=== PATIENT | female | born 1965 | race Caucasian/White ===

== ENCOUNTER 2018-09-10 18:31 | Emergency (ER) | payer OTHER, BC, SELFPAY ==
[2018-09-10 19:37] VITALS: BP 127/72; PULSE 60; RESP 20; TEMP 37; O2SAT 98
--- NOTE | 2018-09-10 19:43 | DI.RAD.S_ITS ---
PROCEDURE: XR RIBS LT MIN 3V W CXR1V INDICATIONS: trauma TECHNIQUE: 2 views of the left ribs were acquired, along with a single view chest. COMPARISON: None. FINDINGS: Surgical changes and devices: None. Bones and chest wall: No fractures or dislocations. No suspicious bony lesions. Overlying soft tissues appear unremarkable. Lungs and pleura: No pleural effusions or pneumothorax. Lungs appear clear. Mediastinum: Mediastinal contours appear normal. Heart size is normal. IMPRESSION: A no trauma found, no pneumothorax identified. Please note that nondisplaced rib fractures may not be accurately detected initially and can be detected by obtaining delayed plain films due to callus formation along the nondisplaced fracture plane. Depending on the clinical status followup by delayed plain films may be warranted. Dictated by: Kelvin Pollock M.D. on 09/10/2018 at 20:49 Approved by: Kelvin Pollock M.D. on 09/10/2018 at 20:50
--- NOTE | 2018-09-10 21:18 | ED_ITS ---
HPI - Trauma <ISADORA Butt - Last Filed: 09/10/18 22:22> General Chief Complaint: Extremity Injury, Upper Stated Complaint: THINKS SHE BROKE A FEW RIBS Time Seen by Provider: 09/10/18 21:17 Source: patient Mode of arrival: ambulatory Limitations: no limitations History of Present Illness HPI narrative: 53-year-old healthy female that is a nonsmoker here for complaint of pain to her left ribcage. She states that last night she had a ground level fall where she fell and landed on the left ribcage area. She reports increased pain with movement of the left ribcage area or palpation of the area. She also reports pain with deep inspiration. She denies any shortness of breath. She is ambulatory into the emergency room. She denies any head injury. No neck pain. She denies any extremity pain. No other concerns or complaints at this timeframe. complaint: injury Related Data Previous Rx's Medication Instructions Recorded hydrocodone-acetaminophen [[place]] 1 tab PO Q6H PRN #5 tab 09/10/18 Allergies Allergy/AdvReac Type Severity Reaction Status Date / Time Iodinated Contrast- Oral and Allergy Verified 09/10/18 19:36 IV Dye Sulfa (Sulfonamide Allergy Verified 09/10/18 19:36 Antibiotics) Penicillins AdvReac Rash Verified 09/10/18 19:36 Review of Systems <ISADORA Butt - Last Filed: 09/10/18 22:22> Constitutional Denies chills, Denies fever(s), Denies lethargy and Denies weakness Eyes Denies change in vision, Denies eye discharge, Denies irritation and Denies loss of vision ENT Ears, Nose, Mouth, and Throat: Denies change in voice, Denies neck pain and Denies sore throat Cardiovascular Denies chest pain, Denies irregular heart rhythm, Denies lightheadedness, Denies palpitations, Denies dyspnea, Denies dyspnea on exertion and Denies orthopnea Respiratory Denies cough, Denies dyspnea, Denies dyspnea on exertion and Denies wheezing Comments: Left ribcage pain Gastrointestinal Gastrointestinal: Denies abdominal pain, Denies change in bowel habits, Denies diarrhea, Denies nausea and Denies vomiting Genitourinary Denies hematuria, Denies flank pain, Denies urinary incontinence and Denies urinary urgency Musculoskeletal Denies neck pain Integumentary/Breasts Denies pruritus, Denies erythema, Denies rash and Denies wounds Neurologic Denies confusion, Denies loss of vision and Denies weakness Psychiatric Denies anxiety, Denies confusion, Denies depression, Denies homicidal ideation and Denies suicidal ideation Endocrine Denies palpitations Hematologic/Lymphatic Denies easy bruising Allergic/Immunologic Denies wheezing Exam <ISADORA Butt - Last Filed: 09/10/18 22:22> Initial Vital Signs Initial Vital Signs: Vital Signs Temperature 98.6 F 09/10/18 19:37 Pulse Rate 60 09/10/18 19:37 Respiratory Rate 20 09/10/18 19:37 Blood Pressure 127/72 09/10/18 19:37 Pulse Oximetry 98 09/10/18 19:37 Const General: cooperative and well developed Nutritional Appearance: well nourished Orientation: alert, awake, oriented x3 and not confused HENMT Mouth: oral mucosae normal and moist mucous membranes Eyes Conjunctivae: conjunctivae normal Sclera: sclerae normal Pupils: PERRL EOM: EOM intact bilaterally Chest Chest: normal inspection of the chest Other: Slight ecchymosis to the left ribcage area. No swelling. No deformities. Resp Effort & Inspection: normal respiratory effort, able to speak in complete sentences, no respiratory distress and no use of accessory muscles Auscultation: clear to auscultation bilaterally, no rales, no rhonchi and no wheezes Cardio Rate: regular rate Rhythm: regular rhythm Heart Sounds: no click, no gallops, no murmurs and no rubs Pulses: normal peripheral pulses Skin General: no rashes or lesions noted, No jaundice and No petechiae Neuro General: alert, oriented x3, gait normal and no focal motor deficits Speech: speech normal <Trina Rivera MD - Last Filed: 09/11/18 02:50> Initial Vital Signs Initial Vital Signs: Vital Signs Temperature 98.6 F 09/10/18 19:37 Pulse Rate 60 09/10/18 19:37 Respiratory Rate 20 09/10/18 19:37 Blood Pressure 127/72 09/10/18 19:37 Pulse Oximetry 98 09/10/18 19:37 Course <ISADORA Butt - Last Filed: 09/10/18 22:22> Orders Ordered: ED Orders 09/10/18 19:43 XR ribs LT min 3V w CXR1V Stat Discontinued Medications Hydrocodone Bitart/Acetaminophen (Vicodin Prepack) 1 bottle MISC SEEINSTR ONE Stop: 09/10/18 22:19 Last Admin: 09/10/18 23:07 Dose: 1 bottle Hydrocodone Bitart/Acetaminophen ([place] 5/325) 1 tab PO NOW ONE Stop: 09/10/18 22:19 Last Admin: 09/10/18 22:40 Dose: 1 tab Vital Signs - 8 hr 09/10/18 19:37 09/10/18 22:00 09/10/18 23:14 Temperature 98.6 F 97.4 F L 97.4 F L Pulse Rate 60 77 74 Respiratory Rate 20 14 18 Blood Pressure 127/72 131/64 Blood Pressure [Right Arm] 131/64 Pulse Oximetry 98 99 99 <Trina Rivera MD - Last Filed: 09/11/18 02:50> Orders Ordered: ED Orders 09/10/18 19:43 XR ribs LT min 3V w CXR1V Stat Discontinued Medications Hydrocodone Bitart/Acetaminophen (Vicodin Prepack) 1 bottle MISC SEEINSTR ONE Stop: 09/10/18 22:19 Last Admin: 09/10/18 23:07 Dose: 1 bottle Hydrocodone Bitart/Acetaminophen ([place] 5/325) 1 tab PO NOW ONE Stop: 09/10/18 22:19 Last Admin: 09/10/18 22:40 Dose: 1 tab Vital Signs - 8 hr 09/10/18 19:37 09/10/18 22:00 09/10/18 23:14 Temperature 98.6 F 97.4 F L 97.4 F L Pulse Rate 60 77 74 Respiratory Rate 20 14 18 Blood Pressure 127/72 131/64 Blood Pressure [Right Arm] 131/64 Pulse Oximetry 98 99 99 MDM - Trauma <ISADORA Butt - Last Filed: 09/10/18 22:22> Imaging Data Left ribcage : Radiologist's impression: [address] [address] XRay Report Signed Patient: DAR WATSON MR#: [id number] : 1965 Acct:[id number] Age/Sex: 53 / F Date of Service: 09/10/18 Loc: ED Accession Number: [id number] Procedure: XR ribs LT min 3V w CXR1V Ordering Provider: Trina Rivera MD PROCEDURE: XR RIBS LT MIN 3V W CXR1V INDICATIONS: trauma TECHNIQUE: 2 views of the left ribs were acquired, along with a single view chest. COMPARISON: None. FINDINGS: Surgical changes and devices: None. Bones and chest wall: No fractures or dislocations. No suspicious bony lesions. Overlying soft tissues appear unremarkable. Lungs and pleura: No pleural effusions or pneumothorax. Lungs appear clear. Mediastinum: Mediastinal contours appear normal. Heart size is normal. IMPRESSION: A no trauma found, no pneumothorax identified. Please note that nondisplaced rib fractures may not be accurately detected initially and can be detected by obtaining delayed plain films due to callus formation along the nondisplaced fracture plane. Depending on the clinical status followup by delayed plain films may be warranted. Dictated by: Kelvin Pollock M.D. on 09/10/2018 at 20:49 Approved by: Kelvin Pollock M.D. on 09/10/2018 at 20:50 [facility] Narrative Medical decision making narrative: X-ray of the chest and left ribcage area was obtained was negative for any acute fractures or findings. Signs symptoms presents as contusion to the left ribcage area. [id number] Tylenol or Motrin as needed for any discomfort. Follow up with her primary care provider next week for re-evaluation. Small amount of [place] is prescribed for breakthrough pain. For any worsening symptoms return to the emergency room. No driving while on the [place]. Discharge Plan Departure Patient Disposition: Home Clinical Impression: Contusion of rib on left side Discharge Date/Time: 09/10/18 23:14 Interventions: ED Discharge Assessment Last Done: 09/10/18 23:14 Instructions: DI for Rib Contusion Activity Restrictions/Additional Instructions: X-ray of the chest and left ribcage area was obtained was negative for any acute fractures or findings. Signs symptoms presents as contusion to the left ribcage area. [id number] Tylenol or Motrin as needed for any discomfort. Follow up with her primary care provider next week for re-evaluation. Small amount of [place] is prescribed for breakthrough pain. For any worsening symptoms return to the emergency room. No driving while on the [place]. Prescriptions: New hydrocodone-acetaminophen [[place]] 5-325 mg tablet 1 tab PO Q6H PRN (Reason: pain) Qty: 5 RF: 0 Referrals: [facility] [Provider Group]
[2018-09-10 22:00] VITALS: BP 131/64; PULSE 77; RESP 14; TEMP 36.3; O2SAT 99
[2018-09-10] MEDS: HYDROCODONE/ACET 5/325 TABLET 1 TAB PO (22:40)
[2018-09-10] MEDS: HYDROCODONE/ACET 5/325 PREPACK 1 BOTTLE MISC (23:07)
[2018-09-10 23:14] VITALS: BP 131/64; PULSE 74; RESP 18; TEMP 36.3; O2SAT 99
== END 2018-09-10 23:14 | disposition home or self-care (01) ==
PROVIDERS: Emergency Provider Nurse Practitioner Family
DX: S20.212A Contusion of left front wall of thorax, initial encounter (principal); W19.XXXA Unspecified fall, initial encounter
CPT/HCPCS: 71101; 99282; 99283

== ENCOUNTER → 2023-06-12 16:14 | Outpatient (CLI) | payer OTHER, SELFPAY ==
[2023-06-12 16:53] LABS: Hematocrit 34.3 % (36-46); Hemoglobin 11.8 g/dL (12.0-16.0); Mean Corpuscular HGB Conc 34.4 % (30-36); Mean Corpuscular Hemoglobin 32.5 PG (26-34); Mean Corpuscular Volume 94.6 fL (80-100); Platelet Count 180 X10^3/uL (150-400); Red Blood Cell Count 3.63 X10^6/uL (4.0-5.2); Red Cell Distribution Width 12.6 % (11.6-14.8); White Blood Cell Count 6.3 X10^3/uL (4.5-11.0)
== END ==
PROVIDERS: Referring Provider Physician Assistant; Visit Provider Physician Assistant
DX: N95.0 Postmenopausal bleeding (principal)
CPT/HCPCS: 36415; 85027

== ENCOUNTER → 2023-06-19 12:09 | Outpatient (CLI) | payer OTHER, SELFPAY ==
--- NOTE | 2023-06-19 12:11 | DI.US.S_ITS ---
PROCEDURE: US PELVIC COMPLETE INDICATIONS: POST MENOPAUSAL BLEEDING TECHNIQUE: Real-time scanning was performed of the pelvic organs, with image documentation. Additional endovaginal scanning was necessary due to incomplete visualization of the adnexal and endometrial structures by transabdominal scanning. COMPARISON: [facility], US, US PELVIC COMPLETE, 11/11/2021, 9:34. FINDINGS: Uterus: Uterus is anteverted and normal in size at 8.7 x 4.2 x 5.4 cm. The myometrium is heterogenous. The endometrial thickness measures approximately 3.8 mm. In the lower uterine segment, several endometrial cysts present, largest measures 4 mm. Ovaries: Right ovary not visualized. Left ovary measures 2.4 x 1.8 x 2.3 cm. Volume 5.2 cc. No free fluid or adnexal mass. Other: No pathologic free abdominal or pelvic fluid. IMPRESSION: Several small endometrial cysts in the lower uterine segment. Consider endometrial biopsy Nonvisualized left ovary. Approved by: Luis Zavaleta M.D. on 06/19/2023 at 13:02
== END ==
PROVIDERS: Referring Provider Physician Assistant; Visit Provider Physician Assistant
DX: N95.0 Postmenopausal bleeding (principal); N85.8 Other specified noninflammatory disorders of uterus
CPT/HCPCS: 76830; 76856; 93976

== ENCOUNTER → 2023-06-23 11:30 | Outpatient (CLI) | payer OTHER, SELFPAY ==
--- NOTE | 2023-06-23 | DI.RAD.S_ITS ---
PROCEDURE: XR KNEE RT 1TO2V INDICATIONS: Unspecified internal derangement of right knee TECHNIQUE: 2 views of the knee were acquired. COMPARISON: None. FINDINGS: Bones: No fractures or dislocations. No suspicious bony lesions. Mild tricompartmental periarticular osteophyte formation. Soft tissues: No joint effusion. No suspicious soft tissue calcifications. IMPRESSION: Osteoarthritis. No acute fracture. No osseous lesion. If symptoms and/or clinical suspicion for pathology persist, further assessment with repeat, or advanced imaging (e.g., CT, MRI, or bone scan) may be helpful for further assessment. Dictated by: Lorraine Sweeney M.D. on 06/23/2023 at 14:29 Approved by: Lorraine Sweeney M.D. on 06/23/2023 at 14:35
== END ==
PROVIDERS: Referring Provider Family Medicine; Visit Provider Family Medicine
DX: M23.91 Unspecified internal derangement of right knee (principal); M17.11 Unilateral primary osteoarthritis, right knee
CPT/HCPCS: 73560

== ENCOUNTER → 2025-02-26 12:49 | Outpatient (CLI) | payer OTHER, SELFPAY ==
[2025-02-26 14:02] LABS: Add Manual Diff / Slide Review NO; Basophils Absolute Auto 0 /uL (0-100); Basophils Percent Auto 0.5 % (0-2); Eosinophils Absolute Auto 100 /uL (0-450); Eosinophils Percent Auto 1.3 % (2-4); Hematocrit 39.3 % (36-46); Hemoglobin 13.1 g/dL (12.0-16.0); Lymphocytes Absolute Auto 2200 /uL (1100-4500); Lymphocytes Percent Auto 38.6 % (25-40); Mean Corpuscular HGB Conc 33.4 % (30-36); Mean Corpuscular Hemoglobin 32.3 PG (26-34); Mean Corpuscular Volume 96.7 fL (80-100); Monocytes Absolute Auto 500 /uL (0-900); Monocytes Percent Auto 8.7 % (3-14); Neutrophils Absolute Auto 2900 /uL (1500-7000); Neutrophils Percent Auto 50.9 % (50-75); Platelet Count 218 X10^3/uL (150-400); Red Blood Cell Count 4.07 X10^6/uL (4.0-5.2); Red Cell Distribution Width 12.5 % (11.6-14.8); White Blood Cell Count 5.7 X10^3/uL (4.5-11.0)
[2025-02-26 14:18] LABS: Alanine Aminotransferase 34 IU/L (<35); Albumin Globulin Ratio 1.8 (1.0-2.8); Alkaline Phosphatase 81 U/L (38-126); Aspartate Aminotransferase 35 IU/L (14-36); BUN Creatinine Ratio 16.5 (6-22); Bilirubin Total 0.9 mg/dL (0.2-1.3); Blood Urea Nitrogen 13 mg/dL (7-17); Calcium 10.1 mg/dL (8.4-10.2); Carbon Dioxide 22 mmol/L (22-32); Chloride 103 mmol/L (98-107); Cholesterol 190 mg/dL (140-199); Estimated Glomerular Filt Rate > 60 mL/min (>60); Globulin 2.8 g/dL (1.7-4.1); Glucose 102 mg/dL (70-99); HDL Cholesterol 70 mg/dL (40-60); HEMOLYSIS < 15 (0-50); LDL Cholesterol Calculated 80 mg/dL (<100); Potassium 4.7 mmol/L (3.4-5.1); Sodium 137 mmol/L (137-145); Total Protein 7.8 g/dL (6.3-8.2); Triglycerides 201 mg/dL (35-150)
[2025-02-26 15:02] LABS: Hemoglobin A1C% w Est Avg Glu 5.7 % (4.0-6.0)
== END ==
LOC: LAB 12:50
PROVIDERS: PCP Family Medicine; Referring Provider Family Medicine; Visit Provider Family Medicine
DX: Z00.00 Encounter for general adult medical examination without abnormal findings (principal); E78.5 Hyperlipidemia, unspecified
CPT/HCPCS: 36415; 80053; 80061; 82672; 83036; 84144; 85025

== ENCOUNTER → 2025-02-26 17:32 | Outpatient (CLI) | payer OTHER, SELFPAY ==
--- NOTE | 2025-02-26 17:33 | DI.MG.S_ITS ---
MM screening mammo BI: 02/26/2025. BI-RADS: 2 CLINICAL: 59-year old female for bilateral screening mammogram. Tyrer-Cuzick lifetime risk of 4.7%. No personal or first-degree family history of breast cancer. The patient had a prior left breast biopsy. PRIOR EXAMS: 04-26-2019. MAMMOGRAPHY TECHNIQUE: 2D and 3D (tomosynthesis) digital mammographic views obtained, with additional images as needed for full coverage. Current study was also evaluated with a Computer Aided Detection (CAD) system. DENSITY B. There are scattered areas of fibroglandular density. MAMMOGRAPHY FINDINGS Right: No suspicious mass, asymmetry, microcalcification, or other abnormality seen. Left: Biopsy marker present on the left. There are no suspicious masses, calcifications, or other findings in the breast. IMPRESSION: Right * No evidence of malignancy. Left * No evidence of malignancy with benign findings. RECOMMENDATIONS Bilateral * Annual screening mammography. OVERALL ASSESSMENT CATEGORY BI-RADS-2: Benign. The [employer] recommends annual screening mammography beginning at age 40 for women with average risk of breast cancer. ELECTRONICALLY SIGNED: Julien Fitzgerald M.D. on 02/27/2025 at 08:36:51 AM PT Interpreting Station ID: [id number]
== END ==
PROVIDERS: PCP Family Medicine; Referring Provider Family Medicine; Visit Provider Family Medicine
DX: Z12.31 Encounter for screening mammogram for malignant neoplasm of breast (principal)
CPT/HCPCS: 77063; 77067

== ENCOUNTER → 2025-04-15 11:01 | Outpatient (CLI) | payer OTHER, SELFPAY ==
--- NOTE | 2025-04-15 11:03 | DI.US.S_ITS ---
PROCEDURE: US ABDOMEN LIMITED INDICATIONS: umbilical hernia TECHNIQUE: Real-time focused scanning was performed of the abdomen, with image documentation. COMPARISON: None. FINDINGS: Multiple grayscale color Doppler images were acquired over the palpable area of patient concern localizing to the umbilical region. No evidence for umbilical hernia. No abnormal mass. No adenopathy. No abnormal fluid collection. IMPRESSION: No sonographic abnormalities identified over the patient directed area of concern. Specifically, no evidence for umbilical hernia. Dictated by: Gato Gambino M.D. on 04/15/2025 at 17:01 Approved by: Gato Gambino M.D. on 04/15/2025 at 17:04
--- NOTE | 2025-04-15 11:03 | DI.US.S_ITS ---
PROCEDURE: US PELVIC COMPLETE INDICATIONS: bleeding after intercourse TECHNIQUE: Real-time scanning was performed of the pelvic organs, with image documentation. Additional endovaginal scanning was necessary due to incomplete visualization of the adnexal and endometrial structures by transabdominal scanning. COMPARISON: [facility], , US PELVIC COMPLETE, 06/19/2023, 12:22. FINDINGS: Uterus: Uterus is anteverted and normal in size at 8.7 x 5 x 5.3 cm. The myometrium is homogeneous. The endometrium measures 4 mm combined thickness. No focal lesion seen Ovaries: The right ovary measures 3.2 x 1.9 x 1.8 cm, with a calculated ovarian volume of 2.8 cc. The left ovary measures 1.6 x 1.1 x 1.4 cm, with a calculated ovarian volume of 1.1 cc. The ovaries have a normal sonographic appearance. Less than 12 follicles can be seen in each ovary. No adnexal masses are seen. Other: No pathologic free abdominal or pelvic fluid. IMPRESSION: Unremarkable examination. We strive to produce accurate, complete, and clear reports of imaging services. To assist us in improving patient care, this report was composed using standard report templates and voice recognition software. Therefore, it may contain abnormal punctuation, insertions and/or omissions. Occasional wrong-word or sound-alike substitutions may occur. Though we review the report and make efforts to correct it, we do recommend that the report be read carefully in proper context to recognize any text inaccuracies. Dictated by: Alejo Vera M.D. on 04/15/2025 at 21:31 Approved by: Alejo Vera M.D. on 04/15/2025 at 21:33
== END ==
PROVIDERS: PCP Family Medicine; Referring Provider Family Medicine; Visit Provider Family Medicine
DX: N93.0 Postcoital and contact bleeding (principal); K42.9 Umbilical hernia without obstruction or gangrene
CPT/HCPCS: 76705; 76830; 76856

== ENCOUNTER → 2025-05-16 11:35 | Outpatient (CLI) | payer OTHER, SELFPAY ==
[2025-05-16 13:10] LABS: Free T3, Triiodothyronine Free 4.05 pg/mL (2.77-5.27); Free T4, Direct Thyroxine 1.04 ng/dL (0.78-2.19)
[2025-05-16 13:23] LABS: Thyroid Stimulating Hormone 1.32 uIU/mL (0.47-4.68)
== END ==
PROVIDERS: PCP Family Medicine; Referring Provider Family Medicine; Visit Provider Family Medicine
DX: E03.9 Hypothyroidism, unspecified (principal); Z79.890 Hormone replacement therapy
CPT/HCPCS: 36415; 84439; 84443; 84481